=== PATIENT | male | born 1950 | race Caucasian/White ===

== ENCOUNTER 2022-01-10 18:25 | Inpatient (IN) | payer OTHER ==
[~2022-01-10 18:25] MED LIST: Iopamidol-370 76% 500 ML 1 ML ONE
[2022-01-10] MEDS ORDERED: Ondansetron PF 4 MG/2 ML Vial ONE (19:01)
[2022-01-10] MEDS ORDERED: Morphine 4 MG/ML VIAL ONE ×2 (19:01→22:53)
[2022-01-10 19:25] LABS: #Basophils 0.1 thou/uL (0.0-0.2); #Eosinphils 0.1 thou/uL (0.0-0.7); #Lymphocytes 1.1 thou/uL (1.20-3.40); #Neutrophils 8.5 thou/uL (1.40-6.50); %Basophils 0.5 % (0.0-1.0); %Eosinophils 0.7 % (0.0-10.0); %Monocytes 9.2 % (0.0-10.0); %Neutrophils 79.6 % (42.0-75.0); Mean Corpuscular HGB CONC 32.9 g/dL (32.0-36.0); Mean Corpuscular Hemoglobin 31.6 pg (27.0-31.0); Mean Platelet Volume 8.1 fL (7.4-10.4); Platelet Count 152 thou/uL (130-400); RBC Distribution Width 12.1 % (11.5-14.5); Red Blood Cell (RBC) Count 4.73 mill/uL (4.70-6.10); White Blood Cell (WBC) Count 10.7 thou/uL (4.8-10.8)
[2022-01-10 19:45] LABS: ALT (SGPT) 28 U/L (8-55); AST (SGOT) 20 U/L (5-34); Albumin 3.9 g/dL (3.4-4.8); Alkaline Phosphatase 69 U/L (40-110); Anion Gap 16 mmol/L (10-20); BUN (Urea Nitrogen) 10 mg/dL (8.4-25.7); Bilirubin, Total 1.1 mg/dL (0.2-1.2); CK (CPK) 92 U/L (30-200); Calc. Creatinine Clearance 0 mL/min (70-130); Calcium 9.6 mg/dL (7.8-10.44); Carbon Dioxide 25 mmol/L (23-31); Chloride 101 mmol/L (98-107); Globulin 3.3 g/dL (2.4-3.5); Glucose 124 mg/dL (80-115); Lipase 26 U/L (8-78); Potassium 4.4 mmol/L (3.5-5.1); Protein, Total 7.2 g/dL (5.8-8.1); Sodium 138 mmol/L (136-145)
[2022-01-10 23:33] LABS: SARS-CoV-2 NAA Rapid Test Not Detected (NotDetected)
[2022-01-11] MEDS ORDERED: Ondansetron PF 4 MG/2 ML Vial IVP PRN (03:15)
[2022-01-11] MEDS ORDERED: Ondansetron ODT 4 MG TAB SL PRN (03:15)
[2022-01-11] MEDS ORDERED: Acetaminophen 325 MG TAB PO PRN (03:15)
[2022-01-11 03:26] VITALS: BMI 28.5
[2022-01-11] MEDS: Sodium Chloride 0.9% 1,000 ML IV SCH ×2 (03:59→12:56)
[2022-01-11] MEDS: Morphine 2 MG/ML VIAL SLOW IVP PRN ×4 (05:09→20:16)
[2022-01-11] MEDS: Famotidine 20 MG TAB PO SCH ×2 (09:00→20:16)
[2022-01-11] MEDS: Enoxaparin Sodium 40 MG/0.4 ML SYRINGE SC SCH (09:03)
[2022-01-11 10:29] LABS: INR-International Normal Ratio 1.1; Prothrombin Time 14.4 sec (12.0-14.7)
[2022-01-11 10:30] LABS: PTT 28.9 sec (22.9-36.1)
[2022-01-12] MEDS: hydrALAZINE 20 MG/ML VIAL SLOW IVP PRN ×2 (00:30→05:50)
[2022-01-12] MEDS: Morphine 2 MG/ML VIAL SLOW IVP PRN ×2 (00:31→05:51)
[2022-01-12 06:34] LABS: #Eosinphils 0.1 thou/uL (0.0-0.7); #Lymphocytes 1.7 thou/uL (1.20-3.40); #Monocytes 0.6 thou/uL (0.11-0.59); #Neutrophils 5.2 thou/uL (1.40-6.50); %Basophils 0.5 % (0.0-1.0); %Eosinophils 1.4 % (0.0-10.0); %Lymphocytes 22.5 % (21.0-51.0); %Neutrophils 67.5 % (42.0-75.0); Hemoglobin 14.3 g/dL (14.0-18.0); Mean Corpuscular HGB CONC 32.3 g/dL (32.0-36.0); Mean Corpuscular Hemoglobin 30.8 pg (27.0-31.0); Mean Corpuscular Volume 95.2 fL (78.0-98.0); Platelet Count 145 thou/uL (130-400); RBC Distribution Width 12.3 % (11.5-14.5); Red Blood Cell (RBC) Count 4.64 mill/uL (4.70-6.10); White Blood Cell (WBC) Count 7.7 thou/uL (4.8-10.8)
[2022-01-12 07:00] LABS: ALT (SGPT) 23 U/L (8-55); AST (SGOT) 24 U/L (5-34); Alkaline Phosphatase 62 U/L (40-110); Anion Gap 15 mmol/L (10-20); BUN (Urea Nitrogen) 13 mg/dL (8.4-25.7); Bilirubin, Total 1.4 mg/dL (0.2-1.2); Calc. Creatinine Clearance 113 mL/min (70-130); Calcium 9.1 mg/dL (7.8-10.44); Carbon Dioxide 22 mmol/L (23-31); Chloride 104 mmol/L (98-107); Globulin 3.4 g/dL (2.4-3.5); Glucose 89 mg/dL (80-115); Lipase 26 U/L (8-78); Potassium 3.9 mmol/L (3.5-5.1); Protein, Total 7.4 g/dL (5.8-8.1); Sodium 137 mmol/L (136-145)
[2022-01-12] MEDS: Enoxaparin Sodium 40 MG/0.4 ML SYRINGE SC SCH (07:52)
[2022-01-12] MEDS: Famotidine 20 MG TAB PO SCH (07:52)
[2022-01-12 08:00] VITALS: TEMP 98.1
[2022-01-12 14:45] VITALS: BP 144/78
== END 2022-01-12 16:15 | disposition home or self-care (01) | DRG 440 ==
LOC: ERS 18:25 → T4-B 01-11 00:55 → OBSVTOIN 01-11 16:31
PROVIDERS: ADMIT Internal Medicine; ATTEND Internal Medicine
DX: K85.90 Acute pancreatitis without necrosis or infection, unspecified (principal); Z20.822 Contact with and (suspected) exposure to COVID-19; I10 Essential (primary) hypertension; K74.60 Unspecified cirrhosis of liver; Z86.19 Personal history of other infectious and parasitic diseases; Z79.899 Other long term (current) drug therapy
CPT/HCPCS: 36415; 71045; 74177; 80053; 82550; 83690; 83880; 84443; 84484; 85025; 85610; 85730; 93005; 96361; 96372; 96374; 96375; 96376; G0378; J0360; J1650; J2270; J2405; J7050; Q9967; U0002